=== PATIENT | male | born 1965 | race Caucasian/White ===

== ENCOUNTER 2018-02-16 08:07 | Day surgery (SDC) | payer BC, MEDICAID ==
[2018-02-16] VITALS (8 sets, daily range): BP systolic 103–112; BP diastolic 60–76
[~2018-02-16] VITALS: Ht 185.4 cm; Wt 90.5 kg
[2018-02-16] MEDS ORDERED: LIDOcaine 1% 30ml preserv. free vial IJ STA (08:22)
[2018-02-16] MEDS ORDERED: normal saline 1000ml 1,000 ML IV PRN (08:40)
[2018-02-16] MEDS ORDERED: albumin (human) 25% 100 ML IV solution IV PRN (08:40)
[2018-02-16] MEDS ORDERED: CIPR-230 PO (09:02)
[2018-02-16] MEDS ORDERED: PANT-47 PO (09:02)
[2018-02-16] MEDS ORDERED: ALB0.5UD IH (09:02)
[2018-02-16] MEDS ORDERED: SPIR25TA5 PO (09:02)
[2018-02-16] MEDS ORDERED: FOLI1TAB16 PO (09:02)
[2018-02-16] MEDS ORDERED: BUDE0.5A11 NEB (09:02)
[2018-02-16] MEDS ORDERED: MUPI22OI30 TP (09:02)
[2018-02-16] MEDS ORDERED: PYRI50TA10 PO (09:02)
[2018-02-16] MEDS ORDERED: FURO-150 PO (09:02)
[2018-02-16] MEDS ORDERED: LACT1CAP65 PO (09:02)
== END 2018-02-16 10:45 | disposition home or self-care (01) ==
LOC: SSTAY O 08:07
PROVIDERS: ATTEND Radiology Vascular & Interventional Radiology
DX: K70.31 Alcoholic cirrhosis of liver with ascites (principal); J42 Unspecified chronic bronchitis; K21.9 Gastro-esophageal reflux disease without esophagitis; I48.91 Unspecified atrial fibrillation; Z87.891 Personal history of nicotine dependence; Z96.698 Presence of other orthopedic joint implants; Z79.2 Long term (current) use of antibiotics; Z98.890 Other specified postprocedural states; Z79.899 Other long term (current) drug therapy
CPT/HCPCS: 49083; J3490; J7030; P9047

== ENCOUNTER 2018-02-24 07:37 | Day surgery (SDC) | payer BC, MEDICAID ==
[~2018-02-24] VITALS: Ht 185.4 cm; Wt 90.7 kg
[~2018-02-24 07:37] MED LIST: ALB0.5UD IH; BUDE0.5A11 NEB; CIPR-230 PO; FOLI1TAB16 PO; FURO-150 PO; LACT1CAP65 PO; LIDOcaine 1% 30ml preserv. free vial SQ STA; MUPI22OI30 TP; PANT-47 PO; PYRI50TA10 PO; SPIR25TA5 PO
[2018-02-24] MEDS ORDERED: albumin (human) 25% 100 ML IV solution IV PRN (08:05)
[2018-02-24 08:21] VITALS: BP 126/66
[2018-02-24 08:42] VITALS: BP 112/67
[2018-02-24 08:45] VITALS: BP 109/54
[2018-02-24] MEDS ORDERED: morphine 4 MG/ML inj SYRINge IV ONE (08:45)
[2018-02-24 09:00] VITALS: BP 102/57
[2018-02-24 09:15] VITALS: BP 105/61
[2018-02-24 09:30] VITALS: BP 108/56
== END 2018-02-24 09:40 | disposition home or self-care (01) ==
LOC: SSTAY O 07:37
PROVIDERS: ATTEND Radiology Diagnostic Radiology
DX: K70.31 Alcoholic cirrhosis of liver with ascites (principal); J42 Unspecified chronic bronchitis; K21.9 Gastro-esophageal reflux disease without esophagitis; I48.91 Unspecified atrial fibrillation; Z79.2 Long term (current) use of antibiotics; Z87.891 Personal history of nicotine dependence; Z98.890 Other specified postprocedural states; Z79.899 Other long term (current) drug therapy; Z96.698 Presence of other orthopedic joint implants
CPT/HCPCS: 49083; J2270; J3490; P9047

== ENCOUNTER 2018-03-07 07:33 | Day surgery (SDC) | payer MEDICAID ==
[2018-03-07] VITALS (7 sets, daily range): BP systolic 99–112; BP diastolic 59–72
[~2018-03-07] VITALS: Ht 185.4 cm; Wt 90.4 kg
[2018-03-07] MEDS ORDERED: normal saline 1000ml 1,000 ML IV PRN (08:00)
[2018-03-07] MEDS ORDERED: albumin 25% 50mL bottle X 2 BOTTLES IV ONE (08:00)
[2018-03-07] MEDS ORDERED: oxyCODONE IR 5mg (immed. release) tablet PO ONE (08:10)
== END 2018-03-07 10:45 | disposition home or self-care (01) ==
LOC: SSTAY O 07:33
PROVIDERS: ATTEND Radiology Diagnostic Radiology
DX: K70.31 Alcoholic cirrhosis of liver with ascites (principal); I48.91 Unspecified atrial fibrillation; J44.9 Chronic obstructive pulmonary disease, unspecified; Z96.698 Presence of other orthopedic joint implants; Z86.79 Personal history of other diseases of the circulatory system; Z87.39 Personal history of other diseases of the musculoskeletal system and connective tissue; Z87.891 Personal history of nicotine dependence; Z79.2 Long term (current) use of antibiotics; Z79.899 Other long term (current) drug therapy; Z98.890 Other specified postprocedural states
CPT/HCPCS: 49083; J3490

== ENCOUNTER 2018-03-17 07:27 | Day surgery (SDC) | payer MEDICAID ==
[~2018-03-17] VITALS: Ht 185.4 cm; Wt 90.8 kg
[2018-03-17] MEDS ORDERED: albumin 25% 50mL bottle X 2 BOTTLES IV ONE (08:00)
[2018-03-17] MEDS ORDERED: oxyCODONE IR 5mg (immed. release) tablet PO ONE (08:25)
[2018-03-17 08:26] VITALS: BP 114/75
[2018-03-17 09:05] VITALS: BP 111/70
[2018-03-17 09:20] VITALS: BP 115/64
[2018-03-17 09:35] VITALS: BP 112/59
[2018-03-17 09:45] VITALS: BP 110/59
== END 2018-03-17 10:00 | disposition home or self-care (01) ==
LOC: SSTAY O 07:27
PROVIDERS: ATTEND Radiology Diagnostic Radiology
DX: K70.31 Alcoholic cirrhosis of liver with ascites (principal); J42 Unspecified chronic bronchitis; K21.9 Gastro-esophageal reflux disease without esophagitis; I48.91 Unspecified atrial fibrillation; I10 Essential (primary) hypertension; G89.29 Other chronic pain; Z96.698 Presence of other orthopedic joint implants; Z79.2 Long term (current) use of antibiotics; Z98.890 Other specified postprocedural states; Z79.899 Other long term (current) drug therapy
CPT/HCPCS: 49083; J3490

== ENCOUNTER 2018-03-25 07:59 | Day surgery (SDC) | payer MEDICAID ==
[2018-03-25] MEDS ORDERED: albumin 25% 50mL bottle X 2 BOTTLES IV ONE (08:20)
[2018-03-25] MEDS ORDERED: normal saline 1000ml 1,000 ML IV PRN (08:20)
[2018-03-25] MEDS ORDERED: oxyCODONE IR 5mg (immed. release) tablet PO ONE (08:35)
[2018-03-25 08:36] VITALS: BP 101/64
[2018-03-25 09:00] VITALS: BP 115/60
[2018-03-25 09:15] VITALS: BP 102/65
[2018-03-25 09:30] VITALS: BP 109/62
[2018-03-25] MEDS ORDERED: SUCR1TAB PO (09:33)
[2018-03-25 09:45] VITALS: BP 110/63
== END 2018-03-25 09:45 | disposition home or self-care (01) ==
LOC: SSTAY O 07:59
PROVIDERS: ATTEND Radiology Diagnostic Radiology
DX: K70.31 Alcoholic cirrhosis of liver with ascites (principal); J42 Unspecified chronic bronchitis; K21.9 Gastro-esophageal reflux disease without esophagitis; I48.91 Unspecified atrial fibrillation; K76.89 Other specified diseases of liver; Z87.891 Personal history of nicotine dependence; Z96.698 Presence of other orthopedic joint implants; Z79.2 Long term (current) use of antibiotics; Z79.899 Other long term (current) drug therapy; Z98.890 Other specified postprocedural states
CPT/HCPCS: 49083; J3490; J7030

== ENCOUNTER 2018-04-05 08:41 | Day surgery (SDC) | payer MEDICAID, MEDICARE ==
[~2018-04-05] VITALS: Ht 185.4 cm; Wt 88.9 kg
[~2018-04-05 08:41] MED LIST changes: +LIDOcaine 1% 30ml preserv. free vial SQ ONE; -LIDOcaine 1% 30ml preserv. free vial SQ STA; +SUCR1TAB PO
[2018-04-05] MEDS ORDERED: albumin 25% 50mL bottle X 2 BOTTLES IV ONE (09:00)
[2018-04-05 09:01] VITALS: BP 101/58
[2018-04-05 09:16] VITALS: BP 106/57
[2018-04-05 09:30] VITALS: BP 97/57
[2018-04-05 09:45] VITALS: BP 104/56
[2018-04-05 10:00] VITALS: BP 107/62
== END 2018-04-05 10:08 | disposition home or self-care (01) ==
LOC: SSTAY O 08:41
PROVIDERS: ATTEND Radiology Diagnostic Radiology
DX: K70.31 Alcoholic cirrhosis of liver with ascites (principal); K21.9 Gastro-esophageal reflux disease without esophagitis; I48.91 Unspecified atrial fibrillation; Z98.890 Other specified postprocedural states; J42 Unspecified chronic bronchitis; Z88.1 Allergy status to other antibiotic agents; Z79.899 Other long term (current) drug therapy
CPT/HCPCS: 49083; C1729; J3490

== ENCOUNTER 2018-04-20 08:37 | Day surgery (SDC) | payer MEDICAID ==
[~2018-04-20] VITALS: Ht 185.4 cm; Wt 88.2 kg
[2018-04-20] MEDS ORDERED: normal saline 1000ml 1,000 ML IV PRN (09:00)
[2018-04-20] MEDS ORDERED: albumin 25% 50mL bottle X 2 BOTTLES IV ONE (09:00)
[2018-04-20] MEDS ORDERED: oxyCODONE IR 5mg (immed. release) tablet PO ONE (09:05)
--- NOTE | 2018-04-20 09:19 | NUR ---
ultrasound of abdomen, no fluid to drain. procedure cancelled.
[2018-04-20 09:20] VITALS: BP 98/61
== END 2018-04-20 09:35 | disposition home or self-care (01) ==
LOC: SSTAY O 08:37
PROVIDERS: ATTEND Radiology Vascular & Interventional Radiology
DX: R18.8 Other ascites (principal)
CPT/HCPCS: 76705; J3490; J7030

== ENCOUNTER 2018-05-25 07:52 | Day surgery (SDC) | payer MEDICAID ==
[~2018-05-25] VITALS: Ht 185.4 cm; Wt 88.4 kg
[~2018-05-25 07:52] MED LIST changes: -LIDOcaine 1% 30ml preserv. free vial SQ ONE; +LIDOcaine 1% 30ml preserv. free vial SQ STA
[2018-05-25 08:16] VITALS: BP 92/54
[2018-05-25] MEDS ORDERED: normal saline 1000ml 1,000 ML IV PRN (08:25)
[2018-05-25] MEDS ORDERED: albumin 25% 100mL bottle x 1 IV ONE (08:25)
--- NOTE | 2018-05-25 09:15 | NUR ---
pt procedure cancelled.
== END 2018-05-25 09:15 | disposition home or self-care (01) ==
LOC: SSTAY O 07:52
PROVIDERS: ATTEND Radiology Vascular & Interventional Radiology
DX: K70.31 Alcoholic cirrhosis of liver with ascites (principal); Z53.8 Procedure and treatment not carried out for other reasons; K21.9 Gastro-esophageal reflux disease without esophagitis; I48.91 Unspecified atrial fibrillation; Z98.890 Other specified postprocedural states; Z79.899 Other long term (current) drug therapy
CPT/HCPCS: 76705; J3490; J7030

== ENCOUNTER 2018-09-23 09:06 | Day surgery (SDC) | payer MEDICAID ==
[~2018-09-23] VITALS: Ht 185.4 cm; Wt 97.4 kg
[~2018-09-23 09:06] MED LIST changes: -ALB0.5UD IH; -CIPR-230 PO; +LACT10SO PO; -LIDOcaine 1% 30ml preserv. free vial SQ STA; -MUPI22OI30 TP; -PYRI50TA10 PO; +PYRI50TA13 PO; -SPIR25TA5 PO; -SUCR1TAB PO
[2018-09-23] MEDS ORDERED: albumin 25% 100mL bottle x 1 IV PRN (09:25)
[2018-09-23] MEDS ORDERED: normal saline 1000ml 1,000 ML IV PRN (09:25)
[2018-09-23] MEDS ORDERED: MORP30TA PO (09:49)
[2018-09-23] MEDS ORDERED: oxyCODONE IR 5mg (immed. release) tablet PO ONE (10:10)
[2018-09-23 10:15] VITALS: BP 108/57
[2018-09-23 10:45] VITALS: BP 72/105
== END 2018-09-23 10:54 | disposition home or self-care (01) ==
LOC: SSTAY O 09:06
PROVIDERS: ATTEND Radiology Diagnostic Radiology
DX: K70.31 Alcoholic cirrhosis of liver with ascites (principal); K21.9 Gastro-esophageal reflux disease without esophagitis; I48.91 Unspecified atrial fibrillation; J42 Unspecified chronic bronchitis; Z79.899 Other long term (current) drug therapy; Z98.890 Other specified postprocedural states
CPT/HCPCS: 49083; C1729; J7030

== ENCOUNTER 2019-02-21 08:21 | Day surgery (SDC) | payer MEDICAID ==
[~2019-02-21] VITALS: Ht 185.4 cm; Wt 98.2 kg
[~2019-02-21 08:21] MED LIST changes: -LACT10SO PO; +MORP30TA PO
[2019-02-21] MEDS ORDERED: normal saline 1000ml 1,000 ML IV PRN (08:35)
[2019-02-21] MEDS ORDERED: albumin 25% 100mL bottle x 1 IV PRN (08:35)
[2019-02-21] MEDS ORDERED: HYDROcodone/acetaminophen 5mg/325mg tablet PO ONE (08:40)
[2019-02-21 08:55] VITALS: BP 106/54
== END 2019-02-21 10:05 | disposition home or self-care (01) ==
LOC: SSTAY O 08:21
PROVIDERS: ATTEND Radiology Vascular & Interventional Radiology
DX: K70.31 Alcoholic cirrhosis of liver with ascites (principal); K21.9 Gastro-esophageal reflux disease without esophagitis; I48.91 Unspecified atrial fibrillation; Z98.890 Other specified postprocedural states; Z79.899 Other long term (current) drug therapy
CPT/HCPCS: 49083; C1729; J7030